=== PATIENT | male | born 1945 | race Caucasian/White ===

== ENCOUNTER 2025-04-11 11:34 | Emergency (ER) | payer MEDICARE ==
[~2025-04-11] VITALS: Ht 177.8 cm; Wt 81.6 kg
[2025-04-11 12:56] VITALS: BP 106/84; TEMP 98.3; O2SAT 95
== END 2025-04-11 12:57 | disposition left against medical advice (07) ==
LOC: ER 11:37
DX: R10.84 Generalized abdominal pain (principal); F17.200 Nicotine dependence, unspecified, uncomplicated; Z88.0 Allergy status to penicillin